=== PATIENT | male | born 1930 | race Caucasian/White ===

== ENCOUNTER 2018-04-08 06:03 | Inpatient (IN) ==
[~2018-04-08 06:03] MED LIST: VANCOMYCIN INJ 1,000 MG in SODIUM CHLORIDE 0.9% 250 ML IV ONE; ceFAZolin 1,000 MG in SYRINGE 1 EACH IV ONE
[2018-04-08] MEDS ORDERED: VANCOMYCIN 1,000 MG VIAL ONE (06:51)
[2018-04-08] MEDS ORDERED: ceFAZolin 1,000 MG VIAL ONE (06:51)
[2018-04-08] MEDS ORDERED: TRANEXAMIC ACID 1,000 MG/10 ML VIAL ONE (06:54)
[2018-04-08] MEDS ORDERED: BACITRACIN OINT 0.9 GM PACK TOP ONE (06:54)
[2018-04-08] MEDS ORDERED: FAMOTIDINE 20 MG TABLET PO ONE (07:25)
[2018-04-08] MEDS ORDERED: DIAZEPAM 5 MG TABLET PO ONE ×2 (07:25→07:46)
[2018-04-08] MEDS ORDERED: DIAZEPAM 5 MG TABLET ONE (07:46)
[2018-04-08] MEDS ORDERED: FAMOTIDINE 20 MG TABLET ONE (07:46)
[2018-04-08] MEDS ORDERED: LACTATED RINGERS 1,000 ML IV SCH (08:00)
[2018-04-08] MEDS ORDERED: BUPIVACAINE SPINAL 0.75% 2 ML AMP SPINAL ONE (08:56)
[2018-04-08] MEDS ORDERED: ROPIVACAINE 0.5% 30 ML VIAL ONE ×2 (09:10→12:12)
[2018-04-08] MEDS ORDERED: PROPOFOL 200 MG/20 ML VIAL IV ONE ×2 (10:42→11:08)
[2018-04-08] MEDS ORDERED: ePHEDrine 50 MG/ML AMP ONE (10:43)
[2018-04-08] MEDS ORDERED: MIDAZOLAM 2 MG/2 ML VIAL ONE ×2 (10:43→10:48)
[2018-04-08] MEDS ORDERED: SEVOFLURANE 1 UNIT/15 MINUTE INH ONE ×2 (10:43→11:08)
[2018-04-08] MEDS ORDERED: fentaNYL 100 MCG/2 ML VIAL ONE ×3 (10:43→11:30)
[2018-04-08] MEDS ORDERED: ONDANSETRON 4 MG/2 ML VIAL ONE ×2 (10:43→12:36)
[2018-04-08] MEDS ORDERED: KETOROLAC 30 MG/1 ML VIAL ONE (10:44)
[2018-04-08] MEDS ORDERED: PHENYLEPHRINE 10 MG/1 ML VIAL IV ONE (10:44)
[2018-04-08] MEDS ORDERED: NEOSTIGMINE 10 MG/10 ML VIAL ONE (10:44)
[2018-04-08] MEDS ORDERED: GLYCOPYRROLATE 0.4 MG/2 ML VIAL ONE (10:44)
[2018-04-08] MEDS ORDERED: ROCURONIUM 100 MG/10 ML VIAL IV ONE (10:44)
[2018-04-08] MEDS ORDERED: ACETAMINOPHEN 1,000 MG/100 ML VIAL IV ONE ×2 (10:44→11:09)
[2018-04-08] MEDS ORDERED: BUPIVACAINE 0.5% 50 ML VIAL ONE (10:45)
[2018-04-08] MEDS ORDERED: PROPOFOL 500 MG/50 ML BOTTLE IV ONE (11:09)
[2018-04-08] MEDS ORDERED: LACTATED RINGERS 1,000 ML IV ONE (11:09)
[2018-04-08] MEDS ORDERED: SODIUM CHLORIDE 0.9% 250 ML IV ONE (11:09)
[2018-04-08] MEDS ORDERED: LORazepam 1 MG TABLET PO PRN (11:14)
[2018-04-08] MEDS ORDERED: oxyCODONE IR 5 MG TABLET PO PRN ×2 (11:16)
[2018-04-08] MEDS ORDERED: diphenhydrAMINE CAP 25 MG CAPSULE PO PRN (11:16)
[2018-04-08] MEDS ORDERED: ONDANSETRON 4 MG/2 ML VIAL IV PRN (11:16)
[2018-04-08] MEDS ORDERED: MORPHINE 4 MG/1 ML VIAL IV PRN ×2 (11:16)
[2018-04-08] MEDS ORDERED: DEXTROSE 50% 25 GM/50 ML VIAL IV PRN (11:18)
[2018-04-08] MEDS ORDERED: GLUCAGON 1 MG VIAL IM PRN (11:18)
[2018-04-08] MEDS: fentaNYL 100 MCG/2 ML VIAL IV PRN ×4 (11:30→12:30)
[2018-04-08] MEDS: KETOROLAC 15 MG/1 ML VIAL IV SCH ×3 (11:32→22:35)
[2018-04-08] MEDS ORDERED: KETOROLAC 15 MG/1 ML VIAL ONE (11:32)
[2018-04-08] MEDS ORDERED: MORPHINE 10 MG/1 ML VIAL ONE (12:01)
[2018-04-08] MEDS: INSULIN LISPRO 100 UNIT/ML SUBCUT SCH ×3 (14:07→21:40)
[2018-04-08] MEDS: LACTATED RINGERS 1,000 ML IV SCH ×2 (14:08→21:44)
[2018-04-08] MEDS: ACETAMINOPHEN 500 MG TABLET PO SCH ×2 (15:43→21:39)
[2018-04-08] MEDS: ceFAZolin 1,000 MG in SYRINGE 1 EACH IV SCH ×2 (15:44→22:36)
[2018-04-08] MEDS: TAMSULOSIN 0.4 MG CAPSULE PO SCH (21:39)
[2018-04-08] MEDS: DOCUSATE SODIUM 100 MG CAPSULE PO SCH (21:39)
[2018-04-09] MEDS: ACETAMINOPHEN 500 MG TABLET PO SCH ×2 (04:18→10:05)
[2018-04-09 04:39] LABS: Basophils % 0.2 % (0.0-0.8); Eosinophils % 0.2 % (0.00-10.9); Hematocrit 27.6 VOL% (42.0-52.0); Hemoglobin 8.8 GM/DL (14.0-18.0); Immature Granulocytes % 0.4 %; Immature Granulocytes Absolute 0.03 #; Lymphocytes # 1.5 10*3/uL (1.4-4.0); Lymphocytes % 17.7 % (21.2-54.2); Mean Corpuscular HGB Conc 31.9 GM/DL (32-36); Mean Corpuscular Hemoglobin 28 PG (27-34); Mean Corpuscular Volume 87.6 FL (87-102); Mean Platelet Volume 11.2 FL (9.6-12.0); Monocytes # 0.7 10*3/uL (0.11-0.8); Monocytes % 8.7 % (1.7-12.7); Neutrophils # 5.9 10*3/uL (1.4-7.4); Neutrophils % 72.8 % (38.7-73.9); Platelet Count 185 T/CUMM (130-400); Red Blood Count 3.15 MC/CUMM (3.8-5.5); Red Cell Distribution Width 13.5 % (9.3-17.3); White Blood Count 8.2 T/CUMM (4-12)
[2018-04-09 05:12] LABS: Osmolality,Calculated 278.5 MOS/KG (273-304); Potassium 3.2 MMOL/L (3.5-5.1)
[2018-04-09 05:24] LABS: Albumin 2.8 G/DL (3.4-5.0); Osmolality,Calculated 279.4 MOS/KG (273-304); Potassium 3.3 MMOL/L (3.5-5.1); Thyroid Stimulating Hormone 1.66 uIU/ml (0.358-3.74); Total Protein 5.5 G/DL (6.4-8.3)
[2018-04-09] MEDS: LACTATED RINGERS 1,000 ML IV SCH (05:25)
[2018-04-09] MEDS: KETOROLAC 15 MG/1 ML VIAL IV SCH (05:26)
[2018-04-09] MEDS: FONDAPARINUX 2.5 MG/0.5 ML SYRINGE SUBCUT SCH (05:27)
[2018-04-09] MEDS ORDERED: MAGNESIUM SULF RIDER 2 GM in PREMIX 1 EACH IV ONE (07:27)
[2018-04-09] MEDS: IRBESARTAN 150 MG TABLET PO SCH (10:03)
[2018-04-09] MEDS: PIOGLITAZONE 15 MG TABLET PO SCH (10:03)
[2018-04-09] MEDS: MAGNESIUM CHLORIDE 64 MG TABLET PO SCH ×2 (10:03→21:09)
[2018-04-09] MEDS: DOCUSATE SODIUM 100 MG CAPSULE PO SCH ×2 (10:04→21:10)
[2018-04-09] MEDS: metFORMIN 500 MG TABLET PO SCH ×2 (10:04→21:10)
[2018-04-09] MEDS: glipiZIDE 5 MG TABLET PO SCH ×2 (10:04→21:10)
[2018-04-09] MEDS: POTASSIUM CHLORIDE 10 MEQ TABLET PO SCH ×2 (10:04→21:10)
[2018-04-09] MEDS: hydroCHLOROthiazide 12.5 MG CAPSULE PO SCH (10:04)
[2018-04-09] MEDS: POTASSIUM CHLORIDE RIDER 10 MEQ in PREMIX 1 EACH IV SCH ×3 (10:05→12:49)
[2018-04-09] MEDS: SIMVASTATIN 20 MG TABLET PO SCH (10:05)
[2018-04-09] MEDS: INSULIN LISPRO 100 UNIT/ML SUBCUT SCH ×4 (10:11→21:13)
[2018-04-09] MEDS: CELECOXIB 200 MG CAPSULE PO SCH (16:59)
[2018-04-09 17:59] LABS: Apearance,Urine CLEAR (Clear); Bacteria,Urine Occasional /HPF (Few); Bilirubin,Urine Negative (Negative); Blood, Urine Moderate mg/dL (Negative); Glucose,Urine (UA) 50 mg/dL (Negative); Ketones,Urine Negative (Negative); Mucus,Urine Occasional /LPF (Occasional); Nitrite,Urine Negative (Negative); Protein,Urine Negative; RBC,Urine 14 /HPF (0-4); Urine Color Straw (Yellow); Urine Specific Gravity 1.008 (1.001-1.035); Urine Urobilinogen < 2.0 EU/DL (0.2-1.0); WBC,Urine 4 /HPF (0-6)
[2018-04-09] MEDS: TAMSULOSIN 0.4 MG CAPSULE PO SCH (21:10)
[2018-04-10] MEDS: MAGNESIUM HYDROXIDE SUSP 30 ML UDCUP PO PRN ×2 (04:22→16:50)
[2018-04-10] MEDS: FONDAPARINUX 2.5 MG/0.5 ML SYRINGE SUBCUT SCH (04:22)
[2018-04-10 04:41] LABS: Basophils % 0.3 % (0.0-0.8); Eosinophils # 0.1 10*3/uL (0.0-0.87); Eosinophils % 1.4 % (0.00-10.9); Hematocrit 31.7 VOL% (42.0-52.0); Hemoglobin 10.6 GM/DL (14.0-18.0); Immature Granulocytes % 0.4 %; Immature Granulocytes Absolute 0.03 #; Lymphocytes # 1.4 10*3/uL (1.4-4.0); Lymphocytes % 17.9 % (21.2-54.2); Mean Corpuscular HGB Conc 33.4 GM/DL (32-36); Mean Corpuscular Hemoglobin 29 PG (27-34); Mean Corpuscular Volume 85.4 FL (87-102); Mean Platelet Volume 10.7 FL (9.6-12.0); Monocytes # 0.8 10*3/uL (0.11-0.8); Monocytes % 9.6 % (1.7-12.7); Neutrophils # 5.5 10*3/uL (1.4-7.4); Neutrophils % 70.4 % (38.7-73.9); Platelet Count 202 T/CUMM (130-400); Red Blood Count 3.71 MC/CUMM (3.8-5.5); Red Cell Distribution Width 13.4 % (9.3-17.3); White Blood Count 7.8 T/CUMM (4-12)
[2018-04-10 05:12] LABS: Calcium 8.6 MG/DL (8.5-10.1); Potassium 3.4 MMOL/L (3.5-5.1)
[2018-04-10] MEDS: PIOGLITAZONE 15 MG TABLET PO SCH (09:08)
[2018-04-10] MEDS: DOCUSATE SODIUM 100 MG CAPSULE PO SCH ×2 (09:08→21:53)
[2018-04-10] MEDS: glipiZIDE 5 MG TABLET PO SCH ×2 (09:08→21:54)
[2018-04-10] MEDS: MAGNESIUM CHLORIDE 64 MG TABLET PO SCH ×2 (09:08→21:53)
[2018-04-10] MEDS: SIMVASTATIN 20 MG TABLET PO SCH (09:09)
[2018-04-10] MEDS: IRBESARTAN 150 MG TABLET PO SCH (09:09)
[2018-04-10] MEDS: CELECOXIB 200 MG CAPSULE PO SCH (09:09)
[2018-04-10] MEDS: POTASSIUM CHLORIDE 10 MEQ TABLET PO SCH ×2 (09:09→21:56)
[2018-04-10] MEDS: metFORMIN 500 MG TABLET PO SCH ×2 (09:09→21:56)
[2018-04-10] MEDS: hydroCHLOROthiazide 12.5 MG CAPSULE PO SCH (09:09)
[2018-04-10] MEDS: INSULIN LISPRO 100 UNIT/ML SUBCUT SCH ×4 (09:09→21:59)
[2018-04-10] MEDS: FINASTERIDE 5 MG TABLET PO SCH (11:33)
[2018-04-10] MEDS: TAMSULOSIN 0.4 MG CAPSULE PO SCH (21:56)
[2018-04-11] MEDS: FONDAPARINUX 2.5 MG/0.5 ML SYRINGE SUBCUT SCH (05:22)
[2018-04-11 05:45] LABS: Basophils % 0.1 % (0.0-0.8); Eosinophils # 0.1 10*3/uL (0.0-0.87); Eosinophils % 0.9 % (0.00-10.9); Hematocrit 29.7 VOL% (42.0-52.0); Hemoglobin 9.5 GM/DL (14.0-18.0); Immature Granulocytes % 0.4 %; Immature Granulocytes Absolute 0.04 #; Lymphocytes % 10.3 % (21.2-54.2); Mean Corpuscular Hemoglobin 28 PG (27-34); Mean Corpuscular Volume 88.1 FL (87-102); Mean Platelet Volume 11.2 FL (9.6-12.0); Monocytes % 10.7 % (1.7-12.7); Neutrophils # 7.2 10*3/uL (1.4-7.4); Neutrophils % 77.6 % (38.7-73.9); Platelet Count 221 T/CUMM (130-400); Red Blood Count 3.37 MC/CUMM (3.8-5.5); Red Cell Distribution Width 13.5 % (9.3-17.3); White Blood Count 9.3 T/CUMM (4-12)
[2018-04-11 06:17] LABS: Calcium 8.5 MG/DL (8.5-10.1); Osmolality,Calculated 273.2 MOS/KG (273-304); Potassium 3.8 MMOL/L (3.5-5.1)
[2018-04-11] MEDS: metFORMIN 500 MG TABLET PO SCH (08:43)
[2018-04-11] MEDS: SIMVASTATIN 20 MG TABLET PO SCH (08:43)
[2018-04-11] MEDS: hydroCHLOROthiazide 12.5 MG CAPSULE PO SCH (08:43)
[2018-04-11] MEDS: IRBESARTAN 150 MG TABLET PO SCH (08:43)
[2018-04-11] MEDS: CELECOXIB 200 MG CAPSULE PO SCH (08:43)
[2018-04-11] MEDS: MAGNESIUM CHLORIDE 64 MG TABLET PO SCH (08:44)
[2018-04-11] MEDS: DOCUSATE SODIUM 100 MG CAPSULE PO SCH (08:44)
[2018-04-11] MEDS: glipiZIDE 5 MG TABLET PO SCH (08:44)
[2018-04-11] MEDS: POTASSIUM CHLORIDE 10 MEQ TABLET PO SCH (08:44)
[2018-04-11] MEDS: PIOGLITAZONE 15 MG TABLET PO SCH (08:44)
[2018-04-11] MEDS: FINASTERIDE 5 MG TABLET PO SCH (08:44)
[2018-04-11] MEDS: INSULIN LISPRO 100 UNIT/ML SUBCUT SCH (08:44)
[2018-04-11] MEDS ORDERED: SODIUM PHOSPHATE ENEMA 133 ML BOTTLE RECTAL ONE (09:00)
[2018-04-11 11:36] VITALS: BP 130/76
== END 2018-04-11 12:35 | DRG 470 ==
LOC: N.OR 06:03 → N.SDSINP 06:06 → N.3E 10:47
PROVIDERS: ADMIT Orthopaedic Surgery; ATTEND Orthopaedic Surgery